=== PATIENT | male | born 1990 | race Caucasian/White ===

== ENCOUNTER 2024-03-12 09:15 | Outpatient (RCR) | payer MEDICAID, SELFPAY ==
--- NOTE | 2024-03-12 12:25 | PC.ADMIT ---
Unable to complete nursing assessment. Per Integrative Assessment patient reported severe depression with SI and a plan to hang himself, denied intent. Patient struggling with financial and food insecurities. Patient also needs to move out of his home by the end of the month. Feels like a burden to others. PHP music manager Dariana Calero aware and met with [facility] staff including Samantha Monsivais, and . A section 12 A obtained. Patient agreed to go to [facility] ER to be evaluated by crisis. I escorted patient to the ER along with [facility] staff including Coty Singh, and , without incident.
[2024-03-12 14:23] LABS: Amphetamine Screen Urine Not Detected (Not Detect); Barbiturates, Urine Not Detected (Not Detect); Benzodiazepines Screen Urine Not Detected (Not Detect); Buprenorphine Scr Not Detected (Not Detect); Cannabinoid Screen Urine POSITIVE (Not Detect); Cocaine Screen Urine Not Detected (Not Detect); Fentanyl, urine Not Detected (Not Detect); Methadone Screen, Urine Not Detected (Not Detect); Opiate Screen Urine Not Detected (Not Detect); Oxycodone Screen Urine Not Detected (Not Detect); Phencyclidine Screen Urine Not Detected (Not Detect)
--- NOTE | 2024-03-12 17:33 | HO.PHP ---
PHP staff member returned a phone call to Denaes finance, Josselin, who was inquiring about a text message received from Pablo stating that he was placed in inpatient level of care. PHP staff member clarified that Pablo was not placed into inpatient level of care and was sent to the emergency room to be evaluated by our CARE team due to safety concerns. Josselin stated they spoke to someone who noted that they were going to have Pablo call them but they still haven't received a phone call. Josselin noted that they took Pablo's phone away and was wondering why that was. PHP staff member disclosed that it is apart of the protocol they have in the emergency department. Pablo explored if the PHP staff member could disclose what occurred where we had safety concerns. PHP staff member stated she does not feel comfortable with sharing confidential information but reiterated that we had safety concerns due to suicidal ideations. Josselin was asking additional questions about Pablo, in which PHP staff stated she is unable to answer because he is being seen at the emergency department at this time. Josselin stated that he will contact them back to gather further information. PHP staff was receptive.
--- NOTE | 2024-03-12 17:41 | HO.PHP ---
[facility] staff member returned Pablo's OP therapist phone call, Meryl Chinchilla, who was inquiring about a message she had received stating that Pablo texted her disclosing he was being involuntary committed. [facility] staff member clarified that Pablo was being evaluated internally due to safety concerns around suicidal ideation. Tonijavier expressed some frustration and stated that this was traumatic for him and was seeking further information. [facility] staff member had her power project manager further talk with Meryl, in which Dariana reiterated what the clinician noted and disclosed we don't have the information she is looking for since he is being seen by a different department. Dariana advised her to contact the care team. Meryl was receptive.
== END 2024-03-12 23:59 | disposition home or self-care (01) ==
LOC: HO.PHPA 09:15
PROVIDERS: Visit Provider Psychiatry & Neurology Psychiatry
DX: F31.32 Bipolar disorder, current episode depressed, moderate (principal); F43.10 Post-traumatic stress disorder, unspecified
CPT/HCPCS: 80307; 90791; 90853

== ENCOUNTER 2024-03-12 12:15 | Emergency (ER) | payer MEDICAID, SELFPAY ==
[2024-03-12 12:18] VITALS: BP 137/82; PULSE 95; RESP 16; TEMP 37.2; O2SAT 100; BMI 37.8
[2024-03-12 12:58] VITALS: RESP 16
--- NOTE | 2024-03-12 13:03 | PC.NURSE ---
Patient arrives to the ED via staff from partial hospitalization to the waiting room. Patient arrived to partial hospitalization today for their first appointment but when he revealed his SI thoughts to the staff, they brought him here. Patient was placed on section 12 in the waiting room by [facility] team without patient being aware. Patient was brought back to pod by JOSE LUIS Marcum. Patient reports being upset that he was sectioned without his knowledge and he felt like he was appropriate for partial hospitalization and they did not give him a chance. Patient is calm and cooperative without issue, offering no concerns to this RN at this time
--- NOTE | 2024-03-12 13:18 | ED.PSYCH ---
HPI - Psych General Chief Complaint: Psychiatric Symptoms Stated Complaint: Crisis Time Seen by Provider: 03/12/24 12:33 Source: patient, RN notes reviewed and old records reviewed Mode of arrival: ambulatory Limitations: no limitations History of Present Illness HPI Narrative: 34-year-old transgender female to male with history of dissociative disorder, bipolar disorder, CPTSD who presents to the ER from partial hospitalization for suicidal ideation. Patient reports that they were speaking with their therapist who recommended the [facility] program for a ?mental tune up. ? The patient presented to [facility] here for intake and endorsed some suicidal ideation with thoughts of hanging himself. He states he was brought down to the emergency department to check in and be seen by crisis. He feels verybetrayed that he was placed on a section 12 without his knowledge. He does not feel that he needs inpatient psychiatric care at this time. Last hospitalization was in 2018. Patient has a history of self-harm but ?is very loved at home.? They would like to go back to the partial hospitalization program but not at this facility. Patient reports feeling traumatized from this experience MD complaint: suicidal ideation and feels depressed Duration: changing over time History of same: Yes Relieving factors: medication and therapy Context: significant life stressor Associated psychiatric symptoms: depression and suicidal ideation Associated symptoms: denies other symptoms Treatments prior to arrival: placed on mental health hold If self harm: admits thoughts of self harm and has plan Details of plan: To hang self Related Data Home Medications ?Medication ?Instructions ?Recorded ?Confirmed gabapentin 300 mg capsule 300 mg PO TID 03/12/24 03/12/24 oxcarbazepine 300 mg tablet 450 mg PO BID 03/12/24 03/12/24 sumatriptan succinate 25 mg tablet 25 mg PO 03/12/24 03/12/24 Allergies Allergy/AdvReac Type Severity Reaction Status Date / Time adhesive tape Allergy Itching Verified 03/12/24 12:57 chiqui Allergy Unknown Verified 03/12/24 12:19 testosterone Allergy Unknown Verified 03/12/24 12:19 [From Testred Cypionate 200] Review of Systems Review of Systems: Yes all other systems are reviewed and are negative PMFSH Past Medical History Medical History (Updated 03/12/24 @ 14:36 by PATY León) History of concussion Migraines History of dislocation Fractured fibula Fractured tibia Chronic joint pain Ariana-Danlos syndrome Tinnitus Psychogenic nonepileptic seizure Surgical History (Updated 03/12/24 @ 11:51 by Arianne Cavlert RN) H/O mastectomy History of cholecystectomy H/O knee surgery Social History Social History Household Members: Significant Other and Other Household Members Other:: Friend Smoked in Last 30 Days: No Use of substances other than those prescribed or required for medical reasons: Yes Substance Use Type: Marijuana Substance Use Frequency: Occasionally Advance Directives: No Advance Directives Information Provided: No Physical Exam Vital Signs: Vital Signs: Last Vital Signs Temp 98.9 F 03/12/24 12:18 Pulse 95 03/12/24 12:18 Resp 16 03/12/24 12:58 BP 137/82 03/12/24 12:18 Pulse Ox 100 03/12/24 12:18 O2 Del Method Room Air 03/12/24 12:18 BMI result Body Mass Index 37.8 Appearance: Alert. Oriented X3. No acute distress. Head: normocephalic, atraumatic. Eyes: Pupils equal, round and reactive to light. ENT: Pharynx normal. No tonsillar swelling or exudate. Neck: Normal inspection. Neck supple. CVS: Normal heart rate and rhythm. Pulses normal. Respiratory: No respiratory distress. Breath sounds normal. Abdomen: Soft and nontender. +BS x4 Skin: Skin warm and dry. Normal skin color. Normal skin turgor. No rashes. Extremities: No lower extremity edema. No joint swelling. Neuro/psych: Oriented X 3. No motor deficit. No sensory deficit. CN II-XII intact. Normal speech and cognition. Flat affect. Very well-spoken. Depressed Course Reevaluation(s) Reevaluation #1: The patient was signed out to me pending the results of a care team evaluation. The patient has been seen by the care team. The patient does not seem to require inpatient level of care. The patient was hoping to go to respite but respite is not available. The patient was ultimately comfortable returning home. They live with their partner Amber and feel safe returning there. They do not feel they are likely to injure himself in any way. The patient will follow up with their psychiatric nurse practitioner, Anastasiia Miranda, and with their PCP. Time: 17:07 Medical Decision Making Medical Decision Making MDM Narrative: 34-year-old transgender female to male with a history of CPTSD, bipolar and dissociative identity disorder presenting from partial hospitalization for suicidal thoughts with plan to hang themselves. Patient does not feel they need inpatient level of care at this time and feels they just want to be part of the partial hospitalization program. Patient does not trust the process here and is ?traumatized.? Patient is calm and cooperative. Admitting this suicidal thoughts but reports they would never actually hang themselves because they are very loved at home. Currently medically cleared at this time. Place him physician observation at 14:30 pending care team evaluation Differential Diagnosis Differential Diagnoses: The differential diagnosis associated with the presentation includes substance induced mood disorder, acute psychosis, schizophrenia, schizoaffective disorder, PTSD, bipolar disorder, major depression with psychotic features Admission/Observation Consideration of admission/observation: Escalation of care including admission/observation considered Consult Healthcare Provider Management of the patient was discussed with: Steel Plate Printer Lab Data [facility] Lab Attestation statement: I reviewed the patient's lab results. No significant metabolic abnormality 03/12/24 13:25 03/12/24 13:25 Labs: Lab Results 03/12/24 03/12/24 Range/Units 13:25 14:12 WBC 6.0 (4.8-10.8) X10*3/uL RBC 4.57 L (4.60-5.80) X10*6/uL Hgb 14.2 (14.0-18.0) g/dl Hct 41.2 L (42.0-52.0) % MCV 90.2 (80.0-98.0) fL MCH 31.1 (27.0-33.0) pg MCHC 34.5 (31.0-36.0) g/dl RDW 12.0 (11.0-16.0) % Plt Count 382 (160-400) X10*3/uL MPV 9.5 (9.4-12.4) fL Immature Gran % (Auto) 0.3 (0.0-0.4) % Neut % (Auto) 57.0 (45-73) % Lymph % (Auto) 35.8 (20-40) % [place] % (Auto) 4.3 (2-11) % Eos % (Auto) 1.8 (0-4) % Baso % (Auto) 0.8 (0-2) % Lymph # (Auto) 2.2 (1.2-4.9) X10*3/uL [place] # (Auto) 0.3 (0.1-1.2) X10*3/uL Eos # (Auto) 0.1 (0.0-0.4) X10*3/uL Baso # (Auto) 0.1 (0.0-0.2) X10*3/uL Abs Immat Gran (auto) 0.02 (0.00-0.03) X10*3/uL Absolute Neuts (auto) 3.4 (2.0-8.3) x10*3/uL Absolute Nucleated RBC 0.000 (0.0-0.012) X10*3/uL Nucleated RBC % (auto) 0.0 (0.0-0.2) /100WBC Sodium 140 (135-145) mmol/L Potassium 4.5 (3.3-5.1) mmol/L Chloride 107 (96-108) mmol/L Carbon Dioxide 24 (22-29) mmol/L Anion Gap 14 (12-20) BUN 13 (9-16) mg/dL Creatinine 0.64 (0.5-1.4) mg/dL Estim Creat Clear Calc 175.1 Estimated GFR > 60 Random Glucose 103 (60-115) mg/dL Calcium 9.3 (8.4-10.2) mg/dL Total Bilirubin 0.5 (0.0-1.0) mg/dL AST 16 (5-37) U/L ALT 15 (0-40) U/L Alkaline Phosphatase 93 (39-117) U/L Total Protein 7.7 (6.5-8.0) g/dL Albumin 4.3 (3.5-5.0) g/dL Urine Color Yellow Urine Appearance Cloudy Urine pH 6.0 (5.0-9.0) Ur Specific [place] 1.020 (1.005-1.025) Urine Protein Negative (Neg-Trace) mg/dL Urine Glucose (UA) Negative (Negative) mg/dL Urine Ketones Negative (Negative) mg/dL Urine Blood Negative (Negative) Urine Nitrite Negative (Negative) Ur Leukocyte Esterase Negative (Negative) Urine Opiates Screen Not Detected (Not Detect) Ur Buprenorphine Scrn Not Detected (Not Detect) ng/mL Ur Oxycodone Screen Not Detected (Not Detect) ng/mL Urine Methadone Screen Not Detected (Not Detect) ng/mL Urine Fentanyl Screen Not Detected (Not Detect) Ur Barbiturates Screen Not Detected (Not Detect) Ur Phencyclidine Scrn Not Detected (Not Detect) Ur Amphetamines Screen Not Detected (Not Detect) U Benzodiazepines Scrn Not Detected (Not Detect) Urine Cocaine Screen Not Detected (Not Detect) U Marijuana (THC) Screen POSITIVE H (Not Detect) Ethyl Alcohol < 10 mg/dL External Record Review External record reviewed: Outpatient record, Prior outpatient labs and Prior outpatient radiology Prescription Management I considered prescription management with: Other (Antipsychotic, antidepressant) Chronic Conditions Patient?s care impacted by: Other (Bipolar) Critical Care Time Critical Care Time Critical Care Time: No Discharge Plan Discharge Clinical Impression: Bipolar disorder, Dissociative identity disorder Patient Disposition: Home, Self-Care Additional Instructions: Please continue your regular medications. Please plan on following up with your psychiatric nurse practitioner, Christine Miranda, and with your regular doctor. At any point you are feeling significantly worse and wished to speak to somebody confidentially you can contact the [facility] crisis hotline at [phone]. Alternatively if you feel significantly worse please return to the emergency department. Prescriptions: No Action sumatriptan succinate 25 mg tablet 25 mg PO oxcarbazepine 300 mg tablet 450 mg PO BID gabapentin 300 mg capsule 300 mg PO TID Referrals: Paloma Mccoy NP [Primary Care Provider] - (Depression) Interventions: [place]-Suicide Risk Severity Scale Last Done: 03/12/24 12:58 Print Language: Mohawk
[2024-03-12 13:30] LABS: MANUAL DIFF FLAG NO
[2024-03-12 13:33] LABS: Basophils Absolute Auto 0.1 X10*3/uL (0.0-0.2); Basophils Percent Auto 0.8 % (0-2); Eosinophils Absolute Auto 0.1 X10*3/uL (0.0-0.4); Eosinophils Percent Auto 1.8 % (0-4); Hematocrit 41.2 % (42.0-52.0); Hemoglobin 14.2 g/dl (14.0-18.0); Imm Gran Abs Auto 0.02 X10*3/uL (0.00-0.03); Imm Gran Pct Auto 0.3 % (0.0-0.4); Lymphocytes Absolute Auto 2.2 X10*3/uL (1.2-4.9); Lymphocytes Percent Auto 35.8 % (20-40); Mean Corpuscular HGB Conc 34.5 g/dl (31.0-36.0); Mean Corpuscular Hemoglobin 31.1 pg (27.0-33.0); Mean Corpuscular Volume 90.2 fL (80.0-98.0); Mean Platelet Volume 9.5 fL (9.4-12.4); Monocytes Absolute Auto 0.3 X10*3/uL (0.1-1.2); Monocytes Percent Auto 4.3 % (2-11); Neutrophils Absolute Auto 3.4 x10*3/uL (2.0-8.3); Platelet Count 382 X10*3/uL (160-400); Red Blood Count 4.57 X10*6/uL (4.60-5.80)
[2024-03-12 13:45] LABS: Alanine Aminotransferase 15 U/L (0-40); Albumin Level 4.3 g/dL (3.5-5.0); Alkaline Phosphatase 93 U/L (39-117); Anion Gap 14 (12-20); Aspartate Amino Transferase 16 U/L (5-37); Bilirubin Total 0.5 mg/dL (0.0-1.0); Blood Urea Nitrogen 13 mg/dL (9-16); Calcium 9.3 mg/dL (8.4-10.2); Carbon Dioxide 24 mmol/L (22-29); Chloride 107 mmol/L (96-108); Creatinine Clr Calc Pharmacy 175.1; Estimated Glomerular Filt Rate > 60; Ethanol < 10 mg/dL; Glucose Random 103 mg/dL (60-115); Potassium 4.5 mmol/L (3.3-5.1); Sodium 140 mmol/L (135-145); Total Protein 7.7 g/dL (6.5-8.0)
[2024-03-12 14:58] LABS: Appearance Urine Cloudy; Color Urine Yellow; Glucose Urine UA Negative (Negative); Leukocyte Esterase Urine Negative (Negative); Nitrite Urine Negative (Negative); Urine Blood Negative (Negative); Urine Ketones Negative (Negative); Urine Protein Negative (Neg-Trace)
[2024-03-12 15:02] LABS: Amphetamine Screen Urine Not Detected (Not Detect); Barbiturates, Urine Not Detected (Not Detect); Benzodiazepines Screen Urine Not Detected (Not Detect); Buprenorphine Scr Not Detected (Not Detect); Cannabinoid Screen Urine POSITIVE (Not Detect); Cocaine Screen Urine Not Detected (Not Detect); Fentanyl, urine Not Detected (Not Detect); Methadone Screen, Urine Not Detected (Not Detect); Opiate Screen Urine Not Detected (Not Detect); Oxycodone Screen Urine Not Detected (Not Detect); Phencyclidine Screen Urine Not Detected (Not Detect)
[2024-03-12 17:20] VITALS: BP 106/85; PULSE 88; RESP 14; TEMP 36.8; O2SAT 99
== END 2024-03-12 17:21 | disposition home or self-care (01) ==
PROVIDERS: Emergency Medicine; Emergency Provider Emergency Medicine; PCP Nurse Practitioner Family
DX: F31.9 Bipolar disorder, unspecified (principal); F44.9 Dissociative and conversion disorder, unspecified; R45.851 Suicidal ideations; F64.0 Transsexualism; Q79.60 Ehlers-Danlos syndrome, unspecified; R56.9 Unspecified convulsions; F43.12 Post-traumatic stress disorder, chronic; Z79.899 Other long term (current) drug therapy
CPT/HCPCS: 36415; 80053; 80307; 81003; 85025; 99284; 99285; S9485